=== PATIENT | male | born 1940 | race Two or more races ===

== ENCOUNTER 2018-12-13 17:53 | Inpatient (IN) | payer MEDICARE, OTHER ==
[~2018-12-13] VITALS: Ht 185.4 cm; Wt 81.6 kg
--- NOTE | 2018-12-13 18:00 | NUR ---
ED Nurse Note: Patient brought into ED by ambulance from [facility] c/o pnemonia, patient is diagnosed with PNA with CXR, Levaquin started yesterday, but c.o worsening symptoms. patient's PCP is requestin swallow evaluation upon admission. patient is alert awake, placed patient on monitor.
--- NOTE | 2018-12-13 18:06 | Emergency Room Report ---
History of Present Illness General Chief Complaint: Upper Respiratory Illness Present Illness HPI 78-year-old male possible history of hypertension, end-stage renal disease on dialysis Monday, he did not get his dialysis today, he presents with cough, dry in nature x4 days, he denies any aggravating or alleviating factors, he denies any chest pain, denies any shortness of breath, he does report subjective chills, no fevers, no abdominal pain, patient sent in from assisted for evaluation Allergies: Coded Allergies: PENICILLINS (Verified Allergy, Unknown, 12/13/18) Uncoded Allergies: PEANUT BUTTER (Allergy, Unknown, 12/13/18) Patient History Past Medical History: see triage record Reviewed Nursing Documentation: PMH: Agreed; PSxH: Agreed Review of Systems Constitutional: Denies: chills, fever Eye: Denies: blurred vision, double vision ENT: Denies: throat pain, nasal discharge Respiratory: Reports: cough, shortness of breath, sputum Cardiovascular: Denies: chest pain, palpitations Gastrointestinal: Denies: abdominal pain, diarrhea, nausea, vomiting Genitourinary: Denies: dysuria, pain Musculoskeletal: Denies: back pain, muscle pain Skin: Denies: rash, lesions Neurological: Denies: headache, focal weakness Hematologic/Lymphatic: Denies: easy bleeding, easy bruising All Other Systems: negative except mentioned in HPI Physical Exam Vital Signs Date Time Temp Pulse Resp B/P (MAP) Pulse Ox O2 Delivery O2 Flow Rate FiO2 12/13/18 17:51 98.1 75 16 134/70 (91) 96 Room Air Sp02 EP Interpretation: reviewed, normal General Appearance: well appearing, no apparent distress, alert Head: normocephalic, atraumatic Eyes: bilateral eye PERRL, bilateral eye EOMI ENT: uvula midline, moist mucus membranes Neck: supple, thyroid normal, supple/symm/no masses Respiratory: no respiratory distress, no retraction, no accessory muscle use, crackles - bilaterally Cardiovascular #1: normal peripheral pulses, regular rate, rhythm, no edema, no gallop, no murmur Gastrointestinal: non tender, soft, no guarding, no rebound Musculoskeletal: normal inspection Neurologic: alert, oriented x3 Psychiatric: mood/affect normal Skin: no rash, warm/dry Medical Decision Making Diagnostic Impression: Primary Impression: Pneumonia Additional Impression: Hyperkalemia ER Course 78-year-old male presents with cough concerning for pneumonia, versus ACS, versus fluid overload. Patient found to have possible left lower lobe infiltrate versus effusion, patient started on antibiotics, patient missed his dialysis today, he will receive his dialysis in the morning. Patient has no EKG changes, he is in no acute distress, Lasix was given for the hyperkalemia. Patient in no acute distress, oxygenation is normal. Patient will be admitted under Dr. Segura under telemetry Laboratory Tests Test 12/13/18 18:05 12/13/18 18:17 White Blood Count 8.1 K/UL (4.8-10.8) Red Blood Count 3.59 M/UL (4.70-6.10) L Hemoglobin 10.1 G/DL (14.2-18.0) L Hematocrit 31.9 % (42.0-52.0) L Mean Corpuscular Volume 89 FL (80-99) Mean Corpuscular Hemoglobin 28.1 PG (27.0-31.0) Mean Corpuscular Hemoglobin Concent 31.5 G/DL (32.0-36.0) L Red Cell Distribution Width 14.6 % (11.6-14.8) Platelet Count 165 K/UL (150-450) Mean Platelet Volume 6.5 FL (6.5-10.1) Neutrophils (%) (Auto) 56.1 % (45.0-75.0) Lymphocytes (%) (Auto) 25.8 % (20.0-45.0) Monocytes (%) (Auto) 9.0 % (1.0-10.0) Eosinophils (%) (Auto) 7.7 % (0.0-3.0) H Basophils (%) (Auto) 1.4 % (0.0-2.0) Prothrombin Time 10.3 SEC (9.30-11.50) Prothrombin Time INR 1.0 (0.9-1.1) PTT 30 SEC (23-33) Urine Color Pale yellow Urine Appearance Cloudy Urine pH 8 (4.5-8.0) Urine Specific [place] 1.015 (1.005-1.035) Urine Protein 3+ (NEGATIVE) H Urine Glucose (UA) Negative (NEGATIVE) Urine Ketones Negative (NEGATIVE) Urine Blood 4+ (NEGATIVE) H Urine Nitrite Negative (NEGATIVE) Urine Bilirubin Negative (NEGATIVE) Urine Urobilinogen Normal MG/DL (0.0-1.0) Urine Leukocyte Esterase 3+ (NEGATIVE) H Urine RBC 2-4 /HPF (0 - 0) H Urine WBC Tntc /HPF (0 - 0) H Urine Squamous Epithelial Cells Occasional /LPF Urine Bacteria Many /HPF (NONE) H Sodium Level 138 MMOL/L (136-145) Potassium Level 5.9 MMOL/L (3.5-5.1) H Chloride Level 101 MMOL/L (98-107) Carbon Dioxide Level 25 MMOL/L (21-32) Anion Gap 12 mmol/L (5-15) Blood Urea Nitrogen 87 mg/dL (7-18) H Creatinine 9.3 MG/DL (0.55-1.30) H Estimate Glomerular Filtration Rate mL/min (>60) Glucose Level 123 MG/DL (74-106) H Lactic Acid Level 1.20 mmol/L (0.4-2.0) Calcium Level 10.5 MG/DL (8.5-10.1) H Phosphorus Level 2.6 MG/DL (2.5-4.9) Magnesium Level 1.9 MG/DL (1.8-2.4) Total Bilirubin 0.7 MG/DL (0.2-1.0) Aspartate Amino Transferase (AST) 25 U/L (15-37) Alanine Aminotransferase (ALT) 17 U/L (12-78) Alkaline Phosphatase 103 U/L (46-116) Total Creatine Kinase 191 U/L (26-308) Creatine Kinase MB 1.4 NG/ML (0.0-3.6) Creatine Kinase MB Relative Index 0.7 Troponin I 0.000 ng/mL (0.000-0.056) Pro-B-Type Natriuretic Peptide 4117 pg/mL (0-125) H Total Protein 7.2 G/DL (6.4-8.2) Albumin 2.5 G/DL (3.4-5.0) L Globulin 4.7 g/dL Albumin/Globulin Ratio 0.5 (1.0-2.7) L Venous Blood pH 7.438 Venous Blood Partial Pressure CO2 31.8 Venous Blood Partial Pressure O2 73.2 Venous Blood HCO3 21.0 Venous Blood Total Carbon Dioxide 31.8 Venous Bld O2 Saturation (Measured) 73.2 Venous Blood Oxygen Saturation 90.9 Venous Blood Base Excess -2.5 Methemoglobin 0.1 Sodium (Blood Gas) EKG Diagnostic Results EKG Time: 19:05 EP Interpretation: NSR, rate 69, QTc 409, no acute ST elevations, normal axis Rate: normal Rhythm: NSR ST Segments: no acute changes Chest X-Ray Diagnostic Results Chest X-Ray Diagnostic Results : Chest X-Ray Ordered: Yes # of Views/Limited/Complete: 1 View Indication: Other - Cough EP Interpretation: Yes Interpretation: other - Blunting of left costophrenic angle, consolidation noted Impression: Other - Left lower lobe pneumonia Last Vital Signs Date Time Temp Pulse Resp B/P (MAP) Pulse Ox O2 Delivery O2 Flow Rate FiO2 12/13/18 17:51 98.1 75 16 134/70 (91) 96 Room Air Disposition: ADMITTED INPATIENT Condition: Stable Rubén Petersen M.D. Dec 13, 2018 18:06
[2018-12-13] MEDS ORDERED: Vancomycin 1.5 GM in NS 275 ML IVPB ONE (18:15)
[2018-12-13] MEDS ORDERED: Cefepime HCl 2 GM in NS 110 ML IV SCH (18:15)
[2018-12-13 18:26] VITALS: BP 151/89
[2018-12-13 18:48] LABS: APPEARANCE,URINE CLOUDY; BILIRUBIN, URINE NEGATIVE (NEGATIVE); COLOR,URINE PALE YELLOW; GLUCOSE, URINE (UA) NEGATIVE (NEGATIVE); KETONES,URINE NEGATIVE (NEGATIVE); LEUKOCYTE ESTERASE ,URINE 3+ (NEGATIVE); NITRITE,URINE NEGATIVE (NEGATIVE); PH,URINE 8 (4.5-8.0); PROTEIN,URINE 3+ (NEGATIVE); UROBILINOGEN,URINE NORMAL MG/DL (0.0-1.0)
[2018-12-13 18:50] LABS: BASOPHILS % (AUTO) 1.4 % (0.0-2.0); EOSINOPHILS % (AUTO) 7.7 % (0.0-3.0); HEMATOCRIT 31.9 % (42.0-52.0); HEMOGLOBIN 10.1 G/DL (14.2-18.0); LYMPHOCYTES % (AUTO) 25.8 % (20.0-45.0); MEAN CORPUSCULAR VOLUME 89 FL (80-99); NEUTROPHILS % (AUTO) 56.1 % (45.0-75.0); PLATELET COUNT 165 K/UL (150-450); RED BLOOD COUNT 3.59 M/UL (4.70-6.10); RED CELL DISTRIBUTION WIDTH 14.6 % (11.6-14.8); WHITE BLOOD COUNT 8.1 K/UL (4.8-10.8)
[2018-12-13 18:54] LABS: ANION GAP 12 mmol/L (5-15); BLOOD UREA NITROGEN 87 mg/dL (7-18); CALCIUM 10.5 MG/DL (8.5-10.1); CARBON DIOXIDE 25 MMOL/L (21-32); CHLORIDE 101 MMOL/L (98-107); CREATININE 9.3 MG/DL (0.55-1.30); POTASSIUM 5.9 MMOL/L (3.5-5.1); SODIUM 138 MMOL/L (136-145)
--- NOTE | 2018-12-13 19:00 | NUR ---
HAND-OFF: Report given to Jazmyn MURCIA. patient is stable in bed
[2018-12-13 19:08] LABS: ALANINE AMINOTRANSFERASE 17 U/L (12-78); ALBUMIN 2.5 G/DL (3.4-5.0); ALBUMIN/GLOBULIN RATIO 0.5 (1.0-2.7); ALKALINE PHOSPHATASE 103 U/L (46-116); ASPARTATE AMINO TRANSFERASE 25 U/L (15-37); BILIRUBIN,TOTAL 0.7 MG/DL (0.2-1.0); CKMB 1.4 NG/ML (0.0-3.6); CREATINE KINASE 191 U/L (26-308); PHOSPHORUS 2.6 MG/DL (2.5-4.9)
[2018-12-13 20:25] VITALS: BP 146/75
[2018-12-13] MEDS ORDERED: Milk of Magnesia 30ml Ud ORAL PRN (20:30)
[2018-12-13] MEDS ORDERED: HYDROcodone/Acetamin 5/325 tab ORAL PRN (20:30)
[2018-12-13] MEDS ORDERED: LORazepam 1mg tab ORAL PRN (20:30)
--- NOTE | 2018-12-13 20:55 | NUR ---
ED Nurse Note: Called [facility] for medications list. Varun put them in as soon as they are going to fax it.
[2018-12-13] MEDS: Heparin 5000 units/ml inj SUBQ SCH (21:00)
[2018-12-13 21:05] VITALS: BP 146/75
--- NOTE | 2018-12-13 21:05 | NUR ---
ED Nurse Note: Patient was admited to Tele due to pneumonia. Patient was transfered to the unit via gurney, by ACLS protocol, with all belongings. AAO x4, VSS at this time, skin is dry warm to touch.
--- NOTE | 2018-12-13 21:19 | NUR ---
NURSE NOTES: Received pt from ED via gurney. Pt transferred to tele without any incident. Received report from TWIN Pollard. Pt is A/Ox3. Copake pt to room, unit, and hospital policies. monitor car operator is in placed, IV site intact, asymptomatic, and patent. Bed is in the lowest position and locked. Call light within reach. Belongings list checked and accounted. Received admission orders from Dr. Olson. Will note and carry out.
[2018-12-13 21:30] VITALS: BP 149/82
[2018-12-13] MEDS ORDERED: Vancomycin 1 GM in D5W 275 ML IV SCH (21:30)
[2018-12-13] MEDS: Docusate 100mg cap ORAL SCH (22:01)
[2018-12-14] VITALS (7 sets, daily range): BP systolic 98–138; BP diastolic 60–80
[2018-12-14] MEDS ORDERED: PROSCAR5 MG ORAL (02:20)
[2018-12-14] MEDS ORDERED: VITAMIN D250000 UNI1 ORAL ×2 (02:20→19:34)
[2018-12-14] MEDS ORDERED: ASPIR 8181 MG ORAL (02:20)
[2018-12-14] MEDS ORDERED: megace PO (02:20)
[2018-12-14] MEDS ORDERED: NEPROVITE PO (02:23)
[2018-12-14] MEDS ORDERED: COLACE100 MG ORAL (02:23)
--- NOTE | 2018-12-14 02:35 | NUR ---
NURSE NOTES: Contacted [facility] regarding scheduled HD for today. Spoke to Penelope who said the paving stone installer HD nurse will return call.
[2018-12-14] MEDS ORDERED: RENVELA2.4 GM ORAL (02:37)
[2018-12-14] MEDS ORDERED: SENNA176 MG/5 M PO (02:37)
[2018-12-14] MEDS ORDERED: COREG6.25 MG ORAL (02:37)
[2018-12-14] MEDS ORDERED: LACTULOSE20 GM/301 (02:37)
[2018-12-14] MEDS ORDERED: HYDRALAZINE HCL25 M1 ORAL (02:37)
[2018-12-14] MEDS ORDERED: DULCOLAX10 MG RC (02:37)
[2018-12-14] MEDS ORDERED: FLOMAX0.4 MG ORAL (02:37)
[2018-12-14] MEDS ORDERED: [UNRECOGNIZED DRUG - OTHER] (02:37)
[2018-12-14] MEDS ORDERED: TIZANIDINE HCL4 MG ORAL (02:37)
[2018-12-14] MEDS ORDERED: TRAMADOL HCL50 MG ORAL (02:37)
[2018-12-14] MEDS ORDERED: IRON325 M1 PO (02:37)
[2018-12-14] MEDS ORDERED: GABAPENTIN100 MG ORAL (02:37)
[2018-12-14] MEDS ORDERED: OXYCODONE-ACET1 EAC5 ORAL (02:37)
[2018-12-14] MEDS ORDERED: MILK OF MA400 MG/51 ORAL (02:37)
[2018-12-14 06:34] LABS: BASOPHILS % (AUTO) 0.9 % (0.0-2.0); EOSINOPHILS % (AUTO) 6.4 % (0.0-3.0); HEMATOCRIT 38.8 % (42.0-52.0); LYMPHOCYTES % (AUTO) 18.1 % (20.0-45.0); MEAN CORPUSCULAR VOLUME 89 FL (80-99); MONOCYTES % (AUTO) 9.5 % (1.0-10.0); NEUTROPHILS % (AUTO) 65.2 % (45.0-75.0); PLATELET COUNT 205 K/UL (150-450); RED BLOOD COUNT 4.35 M/UL (4.70-6.10); RED CELL DISTRIBUTION WIDTH 15.1 % (11.6-14.8); WHITE BLOOD COUNT 10.3 K/UL (4.8-10.8)
[2018-12-14 06:57] LABS: ALANINE AMINOTRANSFERASE 13 U/L (12-78); ALBUMIN 2.6 G/DL (3.4-5.0); ALKALINE PHOSPHATASE 106 U/L (46-116); ANION GAP 13 mmol/L (5-15); ASPARTATE AMINO TRANSFERASE 22 U/L (15-37); BILIRUBIN,DIRECT 0.2 MG/DL (0.0-0.3); BILIRUBIN,TOTAL 0.8 MG/DL (0.2-1.0); BLOOD UREA NITROGEN 95 mg/dL (7-18); CALCIUM 10.6 MG/DL (8.5-10.1); CARBON DIOXIDE 22 MMOL/L (21-32); CHLORIDE 101 MMOL/L (98-107); CREATININE 10.1 MG/DL (0.55-1.30); SODIUM 137 MMOL/L (136-145)
[2018-12-14 07:03] LABS: POTASSIUM 6.6 MMOL/L (3.5-5.1)
--- NOTE | 2018-12-14 07:41 | NUR ---
NURSE NOTES: Report given to TWIN Nino.
--- NOTE | 2018-12-14 08:13 | NUR ---
CASE MANAGEMENT:REVIEW 78 YR OLD MALE [facility]IB[facility] CC: PNA BASED ON CHEST XRAY PRIOR TO ADMISSION...WAS ON LEVAQUIN PMH: ESRD ON HD SI: PNEUMONIA. HYPERKALEMIA 98.1 75 16 134/70 96% ON RA H/H-10.1/31.9 K+5.9 BUN+87 CR+9.3 IS: IV VANCOMYCIN IV CEFEPIME CHEST XRAY BLOOD CX : TO TELEMETRY UNIT
[2018-12-14] MEDS: Docusate 100mg cap ORAL SCH ×2 (09:29→20:31)
[2018-12-14] MEDS: Heparin 5000 units/ml inj SUBQ SCH ×2 (09:31→20:32)
--- NOTE | 2018-12-14 10:18 | Diagnostic Imaging Report ---
Indication: Cough Technique: One view of the chest Comparison: none Findings: There is atelectasis and possibly consolidation and pleural fluid at the left lung base. There is a left chest tunneled dialysis catheter in place. There is some atelectasis at the right lung base. The upper lungs are clear. Heart size is normal. Impression: Bilateral basilar atelectasis, possibly left-sided pleural fluid and consolidation This agrees with the preliminary interpretation provided by the emergency room physician
--- NOTE | 2018-12-14 15:25 | History and Physical ---
History of Present Illness General Date patient seen: Dec 14, 2018 Time patient seen: 15:00 Reason for Hospitalization: Upper Respiratory Illness Present Illness HPI 78 y/o M AA, resident of [facility] ESRD on HD, HTN, R LILIBETH, prior DVT who is referred to the ED for pneumonia. His vital signs were normal and his CXR was not particularly abnormal. Cefepime and Vancomycin was started. Nephrology was consulted and he was noted to have K 6.9, UF was done and his SBP was in the low 90's. He is feeling depressed today, reported to be tearful by RN and denies fever, chills, nausea, emesis or chest pain. He wants to return to SNF as soon as possible. Allergies: Coded Allergies: PENICILLINS (Verified Allergy, Unknown, 12/13/18) Uncoded Allergies: PEANUT BUTTER (Allergy, Unknown, 12/13/18) Medication History Scheduled Aspirin* (Aspir 81*), 81 MG ORAL DAILY, (Reported) Carvedilol (Coreg), 6.25 MG ORAL DAILY, (Reported) Docusate Sodium* (Colace*), 200 MG ORAL DAILY, (Reported) Ergocalciferol (Vitamin D2)* (Vitamin D*), 50,000 UNIT ORAL ONCE A WEEK, ( Reported) Ferrous Sulfate (Iron), 325 MG PO TID, (Reported) Finasteride* (Proscar*), 5 MG ORAL DAILY, (Reported) Gabapentin* (Gabapentin*), 100 MG ORAL THREE TIMES A DAY, (Reported) Magnesium Hydroxide* (Milk Of Magnesia*), 30 ML ORAL DAILY, (Reported) Senna [place]ield Extract (Senna), 17.2 MG PO QHS, (Reported) Sevelamer Carbonate* (Renvela*), 2,400 MG ORAL THREE TIMES A DAY, (Reported) Tamsulosin HCl (Flomax), 0.4 MG ORAL DAILY, (Reported) Tizanidine Hcl* (Zanaflex*), 2 MG ORAL Q8HR, (Reported) Scheduled PRN Bisacodyl (Dulcolax), 10 MG RC DAILY PRN for Constipation, (Reported) Hydralazine Hcl* (Hydralazine Hcl*), 25 MG ORAL EVERY 6 HOURS PRN for For High Blood Pressure, (Reported) Lactulose (Lactulose*), 30 ML ORAL QOD PRN for Constipation, (Reported) Oxycodone Hcl/Acetaminophen 10-325* (Oxycodone-Acetaminophen 10-325*), 1 TAB ORAL Q4H PRN for For Pain, (Reported) Tramadol Hcl* (Ultram*), 50 MG ORAL Q6H PRN for For Pain, (Reported) Miscellaneous Medications [Novolin Ss], (Reported) Patient History Healthcare decision maker Resuscitation status Full Code Advanced Directive on File Review of Systems All Other Systems: negative except mentioned in HPI Physical Exam General Appearance: WD/WN Lines, tubes and drains: peripheral HEENT: normocephalic, atraumatic Respiratory/Chest: lungs clear Abdomen: normal bowel sounds Neurologic: chief commercial officer II-XII grossly normal Last 24 Hour Vital Signs Date Time Temp Pulse Resp B/P (MAP) Pulse Ox O2 Delivery O2 Flow Rate FiO2 12/14/18 12:01 97.2 104 19 98/60 (73) 97 12/14/18 09:47 Room Air 12/14/18 08:00 98.0 115 19 114/64 (81) 97 12/14/18 04:00 98.4 98 19 138/80 (99) 97 12/14/18 04:00 100 12/14/18 00:00 98.1 84 18 117/67 (84) 96 12/14/18 00:00 84 12/13/18 22:36 Room Air 12/13/18 21:36 70 12/13/18 21:30 98.0 74 18 149/82 (104) 97 12/13/18 21:05 97.9 70 16 146/75 100 Room Air 12/13/18 21:05 97.9 70 16 140/80 100 Room Air 12/13/18 20:25 97.9 70 16 146/75 100 Room Air 12/13/18 18:26 75 16 Room Air 12/13/18 18:26 97.9 74 14 151/89 100 Room Air 12/13/18 17:51 98.1 75 16 134/70 (91) 96 Room Air Intake and Output 12/13/18 12/14/18 19:00 07:00 Intake Total 200 ml Output Total 3100 ml Balance -2900 ml Intake Oral 200 ml Output Urine Total 3100 ml Laboratory Tests Test 12/13/18 18:05 12/13/18 18:17 12/14/18 05:05 White Blood Count 8.1 K/UL (4.8-10.8) 10.3 K/UL (4.8-10.8) Red Blood Count 3.59 M/UL (4.70-6.10) L 4.35 M/UL (4.70-6.10) L Hemoglobin 10.1 G/DL (14.2-18.0) L 12.0 G/DL (14.2-18.0) L Hematocrit 31.9 % (42.0-52.0) L 38.8 % (42.0-52.0) L Mean Corpuscular Volume 89 FL (80-99) 89 FL (80-99) Mean Corpuscular Hemoglobin 28.1 PG (27.0-31.0) 27.6 PG (27.0-31.0) Mean Corpuscular Hemoglobin Concent 31.5 G/DL (32.0-36.0) L 30.9 G/DL (32.0-36.0) L Red Cell Distribution Width 14.6 % (11.6-14.8) 15.1 % (11.6-14.8) H Platelet Count 165 K/UL (150-450) 205 K/UL (150-450) Mean Platelet Volume 6.5 FL (6.5-10.1) 6.9 FL (6.5-10.1) Neutrophils (%) (Auto) 56.1 % (45.0-75.0) 65.2 % (45.0-75.0) Lymphocytes (%) (Auto) 25.8 % (20.0-45.0) 18.1 % (20.0-45.0) L Monocytes (%) (Auto) 9.0 % (1.0-10.0) 9.5 % (1.0-10.0) Eosinophils (%) (Auto) 7.7 % (0.0-3.0) H 6.4 % (0.0-3.0) H Basophils (%) (Auto) 1.4 % (0.0-2.0) 0.9 % (0.0-2.0) Prothrombin Time 10.3 SEC (9.30-11.50) Prothromb Time International Ratio 1.0 (0.9-1.1) Activated Partial Thromboplast Time 30 SEC (23-33) Urine Color Pale yellow Urine Appearance Cloudy Urine pH 8 (4.5-8.0) Urine Specific [place] 1.015 (1.005-1.035) Urine Protein 3+ (NEGATIVE) H Urine Glucose (UA) Negative (NEGATIVE) Urine Ketones Negative (NEGATIVE) Urine Blood 4+ (NEGATIVE) H Urine Nitrite Negative (NEGATIVE) Urine Bilirubin Negative (NEGATIVE) Urine Urobilinogen Normal MG/DL (0.0-1.0) Urine Leukocyte Esterase 3+ (NEGATIVE) H Urine RBC 2-4 /HPF (0 - 0) H Urine WBC Tntc /HPF (0 - 0) H Urine Squamous Epithelial Cells Occasional /LPF Urine Bacteria Many /HPF (NONE) H Sodium Level 138 MMOL/L (136-145) 137 MMOL/L (136-145) Potassium Level 5.9 MMOL/L (3.5-5.1) H 6.6 MMOL/L (3.5-5.1) *H Chloride Level 101 MMOL/L (98-107) 101 MMOL/L (98-107) Carbon Dioxide Level 25 MMOL/L (21-32) 22 MMOL/L (21-32) Anion Gap 12 mmol/L (5-15) 13 mmol/L (5-15) Blood Urea Nitrogen 87 mg/dL (7-18) H 95 mg/dL (7-18) H Creatinine 9.3 MG/DL (0.55-1.30) H 10.1 MG/DL (0.55-1.30) H Estimat Glomerular Filtration Rate mL/min (>60) mL/min (>60) Glucose Level 123 MG/DL (74-106) H 95 MG/DL (74-106) Lactic Acid Level 1.20 mmol/L (0.4-2.0) Calcium Level 10.5 MG/DL (8.5-10.1) H 10.6 MG/DL (8.5-10.1) H Phosphorus Level 2.6 MG/DL (2.5-4.9) Magnesium Level 1.9 MG/DL (1.8-2.4) Total Bilirubin 0.7 MG/DL (0.2-1.0) 0.8 MG/DL (0.2-1.0) Aspartate Amino Transf (AST/SGOT) 25 U/L (15-37) 22 U/L (15-37) Alanine Aminotransferase (ALT/SGPT) 17 U/L (12-78) 13 U/L (12-78) Alkaline Phosphatase 103 U/L (46-116) 106 U/L (46-116) Total Creatine Kinase 191 U/L (26-308) Creatine Kinase MB 1.4 NG/ML (0.0-3.6) Creatine Kinase MB Relative Index 0.7 Troponin I 0.000 ng/mL (0.000-0.056) Pro-B-Type Natriuretic Peptide 4117 pg/mL (0-125) H Total Protein 7.2 G/DL (6.4-8.2) 7.0 G/DL (6.4-8.2) Albumin 2.5 G/DL (3.4-5.0) L 2.6 G/DL (3.4-5.0) L Globulin 4.7 g/dL Albumin/Globulin Ratio 0.5 (1.0-2.7) L Venous Blood pH 7.438 Venous Blood Partial Pressure CO2 31.8 Venous Blood Partial Pressure O2 73.2 Venous Blood HCO3 21.0 Venous Blood Total Carbon Dioxide 31.8 Venous Bld O2 Saturation (Measured) 73.2 Venous Blood Oxygen Saturation 90.9 Venous Blood Base Excess -2.5 Methemoglobin 0.1 Sodium (Blood Gas) Direct Bilirubin 0.2 MG/DL (0.0-0.3) Microbiology Date/Time Source Procedure Growth Status 12/13/18 18:05 Urine,Clean Catch Urine Culture - Preliminary Gram Negative Bacillus 1 Resulted Height (Feet): 6 Height (Inches): 1.00 Weight (Pounds): 180 Medications Current Medications Medications (Trade) Dose Ordered Sig/Charles Route PRN Reason Start Time Stop Time Status Last Admin Dose Admin Acetaminophen (Tylenol) 650 mg Q4H PRN ORAL Mild Pain (Pain Scale 1-3) 12/13/18 20:30 01/12/19 20:29 Acetaminophen/ Hydrocodone Bitart ([place] 5/325) 1 tab Q6H PRN ORAL Moderate Pain (Pain Scale 4-6) 12/13/18 20:30 12/20/18 20:29 Bisacodyl (Dulcolax) 10 mg DAILYPRN PRN RECTAL Constipation 12/13/18 20:30 01/12/19 20:29 12/14/18 14:05 Cefepime HCl 500 mg/Dextrose 110 ml @ 220 mls/hr Q24H IV 12/14/18 18:00 12/21/18 17:59 Dextrose (Dextrose 50%) 25 ml Q30M PRN IV Hypoglycemia 12/13/18 20:30 01/12/19 20:29 Dextrose (Dextrose 50%) 50 ml Q30M PRN IV Hypoglycemia 12/13/18 20:30 01/12/19 20:29 Diphenhydramine HCl (Benadryl) 25 mg Q6H PRN ORAL Itching/Pruritis 12/13/18 20:30 01/12/19 20:29 Docusate Sodium (Colace) 100 mg EVERY 12 HOURS ORAL 12/13/18 21:00 01/12/19 20:59 12/14/18 09:29 Heparin Sodium (Porcine) (Heparin 5000 units/ml) 5,000 units EVERY 12 HOURS SUBQ 12/13/18 21:00 01/12/19 20:59 12/14/18 09:31 Lorazepam (Ativan) 1 mg Q4H PRN ORAL For Anxiety 12/13/18 20:30 12/20/18 20:29 12/14/18 14:05 Magnesium Hydroxide (Mom) 30 ml HSPRN PRN ORAL Constipation 12/13/18 20:30 01/12/19 20:29 Ondansetron HCl (Zofran) 4 mg Q6H PRN IVP Nausea & Vomiting 12/13/18 20:30 01/12/19 20:29 Pantoprazole (Protonix) 40 mg DAILY ORAL 12/14/18 09:00 01/13/19 08:59 12/14/18 09:29 Temazepam (Restoril) 15 mg HSPRN PRN ORAL Insomnia 12/13/18 20:30 12/20/18 20:29 Vancomycin HCl (Vanco rx to dose) 1 ea DAILY PRN MISC Per rx protocol 12/13/18 21:30 01/12/19 21:29 Assessment/Plan Status: doing well, stable Assessment/Plan: 78 y/o AA M admitted for pneumonia from SNF # Pneumonia Clinically appears much improved Cefepime and Vancomycin as the patient is SNF resident HHN as needed Supportive care ? fluid overload due to under dyalisis # ESRD HD per renal UF completed today Follow up BMP in am and decide if patient needs repeat HD or if outpatient HD is adequate # HTN Resume home medication # Underlying depression vs adjustment disorder Psychiatry follow up for support FULL CODE DVT- GI ppx Keith Cabello MD Dec 14, 2018 15:25
--- NOTE | 2018-12-14 16:19 | Consultation ---
History of Present Illness General Chief Complaint: Upper Respiratory Illness Present Illness HPI This is a 78 year old male with past medical history of ESRD on HD on // via [facility] chest permacath, HTN, R LILIBETH, prior DVT, SNF resident was sent to the ED for pneumonia. . Cefepime and Vancomycin was started. last HD on monday prior to admission His last HD session was 3 days ago. Hyperkalemic on presentation underwent HD today No UF- hypotensive during HD Allergies: Coded Allergies: PENICILLINS (Verified Allergy, Unknown, 12/13/18) Uncoded Allergies: PEANUT BUTTER (Allergy, Unknown, 12/13/18) Medication History Scheduled Aspirin* (Aspir 81*), 81 MG ORAL DAILY, (Reported) Carvedilol (Coreg), 6.25 MG ORAL DAILY, (Reported) Docusate Sodium* (Colace*), 200 MG ORAL DAILY, (Reported) Ergocalciferol (Vitamin D2)* (Vitamin D*), 50,000 UNIT ORAL ONCE A WEEK, ( Reported) Ferrous Sulfate (Iron), 325 MG PO TID, (Reported) Finasteride* (Proscar*), 5 MG ORAL DAILY, (Reported) Gabapentin* (Gabapentin*), 100 MG ORAL THREE TIMES A DAY, (Reported) Magnesium Hydroxide* (Milk Of Magnesia*), 30 ML ORAL DAILY, (Reported) Senna [place] Extract (Senna), 17.2 MG PO QHS, (Reported) Sevelamer Carbonate* (Renvela*), 2,400 MG ORAL THREE TIMES A DAY, (Reported) Tamsulosin HCl (Flomax), 0.4 MG ORAL DAILY, (Reported) Tizanidine Hcl* (Zanaflex*), 2 MG ORAL Q8HR, (Reported) Scheduled PRN Bisacodyl (Dulcolax), 10 MG RC DAILY PRN for Constipation, (Reported) Hydralazine Hcl* (Hydralazine Hcl*), 25 MG ORAL EVERY 6 HOURS PRN for For High Blood Pressure, (Reported) Lactulose (Lactulose*), 30 ML ORAL QOD PRN for Constipation, (Reported) Oxycodone Hcl/Acetaminophen 10-325* (Oxycodone-Acetaminophen 10-325*), 1 TAB ORAL Q4H PRN for For Pain, (Reported) Tramadol Hcl* (Ultram*), 50 MG ORAL Q6H PRN for For Pain, (Reported) Miscellaneous Medications [Novolin Ss], (Reported) Patient History Healthcare decision maker Resuscitation status Full Code Advanced Directive on File Review of Systems Constitutional: Denies: no symptoms, see HPI, chills, sweats, fever, malaise, weakness, other Eye: Denies: no symptoms, see HPI, eye pain, blurred vision, tearing, double vision, nose pain, nose congestion, acuity changes, discharge, other ENT: Denies: no symptoms, see HPI, ear pain, ear discharge, nose pain, nose congestion, throat pain, throat swelling, mouth pain, hearing loss, nasal discharge, other Respiratory: Denies: no symptoms, see HPI, cough, orthopnea, shortness of breath, stridor, wheezing, JAIN, sputum, other Cardiovascular: Denies: no symptoms, see HPI, chest pain, edema, palpitations, syncope, PND, other Gastrointestinal: Denies: no symptoms, see HPI, abdominal pain, constipation, diarrhea, nausea, vomiting, melena, hematemesis, other Genitourinary: Denies: no symptoms, see HPI, discharge, dysuria, frequency, hematuria, pain, retention, incontinence, urgency, vag bleed/dc, other Musculoskeletal: Denies: no symptoms, see HPI, back pain, gout, joint pain, joint swelling, muscle pain, muscle stiffness, other Skin: Denies: no symptoms, see HPI, rash, change in color, change in hair/nails , dryness, lesions, other Psychiatric: Denies: no symptoms, see HPI, prior hx, anxiety, depressed feelings, emotional problems, SI, HI, hallucinations, other Neurological: Denies: no symptoms, see HPI, headache, numbness, paresthesia, seizure, tingling, tremors, focal weakness, syncope, dizziness, other Endocrine: Denies: no symptoms, see HPI, excessive sweating, flushing, intolerance to temperature, increased thirst, increased urine, unexplained weight loss, other Physical Exam General Appearance: WD/WN, no apparent distress Lines, tubes and drains: peripheral HEENT: normocephalic, atraumatic Neck: non-tender, normal alignment, supple Respiratory/Chest: chest wall non-tender, lungs clear, normal breath sounds Cardiovascular/Chest: normal peripheral pulses Abdomen: normal bowel sounds Extremities: normal range of motion Neurologic: alert, oriented x 3 Last 24 Hour Vital Signs Date Time Temp Pulse Resp B/P (MAP) Pulse Ox O2 Delivery O2 Flow Rate FiO2 12/14/18 12:01 97.2 104 19 98/60 (73) 97 12/14/18 09:47 Room Air 12/14/18 08:00 98.0 115 19 114/64 (81) 97 12/14/18 04:00 98.4 98 19 138/80 (99) 97 12/14/18 04:00 100 12/14/18 00:00 98.1 84 18 117/67 (84) 96 12/14/18 00:00 84 12/13/18 22:36 Room Air 12/13/18 21:36 70 12/13/18 21:30 98.0 74 18 149/82 (104) 97 12/13/18 21:05 97.9 70 16 146/75 100 Room Air 12/13/18 21:05 97.9 70 16 140/80 100 Room Air 12/13/18 20:25 97.9 70 16 146/75 100 Room Air 12/13/18 18:26 75 16 Room Air 12/13/18 18:26 97.9 74 14 151/89 100 Room Air 12/13/18 17:51 98.1 75 16 134/70 (91) 96 Room Air Intake and Output 12/13/18 12/14/18 19:00 07:00 Intake Total 200 ml Output Total 3100 ml Balance -2900 ml Intake Oral 200 ml Output Urine Total 3100 ml Laboratory Tests Test 12/13/18 18:05 12/13/18 18:17 12/14/18 05:05 White Blood Count 8.1 K/UL (4.8-10.8) 10.3 K/UL (4.8-10.8) Red Blood Count 3.59 M/UL (4.70-6.10) L 4.35 M/UL (4.70-6.10) L Hemoglobin 10.1 G/DL (14.2-18.0) L 12.0 G/DL (14.2-18.0) L Hematocrit 31.9 % (42.0-52.0) L 38.8 % (42.0-52.0) L Mean Corpuscular Volume 89 FL (80-99) 89 FL (80-99) Mean Corpuscular Hemoglobin 28.1 PG (27.0-31.0) 27.6 PG (27.0-31.0) Mean Corpuscular Hemoglobin Concent 31.5 G/DL (32.0-36.0) L 30.9 G/DL (32.0-36.0) L Red Cell Distribution Width 14.6 % (11.6-14.8) 15.1 % (11.6-14.8) H Platelet Count 165 K/UL (150-450) 205 K/UL (150-450) Mean Platelet Volume 6.5 FL (6.5-10.1) 6.9 FL (6.5-10.1) Neutrophils (%) (Auto) 56.1 % (45.0-75.0) 65.2 % (45.0-75.0) Lymphocytes (%) (Auto) 25.8 % (20.0-45.0) 18.1 % (20.0-45.0) L Monocytes (%) (Auto) 9.0 % (1.0-10.0) 9.5 % (1.0-10.0) Eosinophils (%) (Auto) 7.7 % (0.0-3.0) H 6.4 % (0.0-3.0) H Basophils (%) (Auto) 1.4 % (0.0-2.0) 0.9 % (0.0-2.0) Prothrombin Time 10.3 SEC (9.30-11.50) Prothromb Time International Ratio 1.0 (0.9-1.1) Activated Partial Thromboplast Time 30 SEC (23-33) Urine Color Pale yellow Urine Appearance Cloudy Urine pH 8 (4.5-8.0) Urine Specific [place] 1.015 (1.005-1.035) Urine Protein 3+ (NEGATIVE) H Urine Glucose (UA) Negative (NEGATIVE) Urine Ketones Negative (NEGATIVE) Urine Blood 4+ (NEGATIVE) H Urine Nitrite Negative (NEGATIVE) Urine Bilirubin Negative (NEGATIVE) Urine Urobilinogen Normal MG/DL (0.0-1.0) Urine Leukocyte Esterase 3+ (NEGATIVE) H Urine RBC 2-4 /HPF (0 - 0) H Urine WBC Tntc /HPF (0 - 0) H Urine Squamous Epithelial Cells Occasional /LPF Urine Bacteria Many /HPF (NONE) H Sodium Level 138 MMOL/L (136-145) 137 MMOL/L (136-145) Potassium Level 5.9 MMOL/L (3.5-5.1) H 6.6 MMOL/L (3.5-5.1) *H Chloride Level 101 MMOL/L (98-107) 101 MMOL/L (98-107) Carbon Dioxide Level 25 MMOL/L (21-32) 22 MMOL/L (21-32) Anion Gap 12 mmol/L (5-15) 13 mmol/L (5-15) Blood Urea Nitrogen 87 mg/dL (7-18) H 95 mg/dL (7-18) H Creatinine 9.3 MG/DL (0.55-1.30) H 10.1 MG/DL (0.55-1.30) H Estimat Glomerular Filtration Rate mL/min (>60) mL/min (>60) Glucose Level 123 MG/DL (74-106) H 95 MG/DL (74-106) Lactic Acid Level 1.20 mmol/L (0.4-2.0) Calcium Level 10.5 MG/DL (8.5-10.1) H 10.6 MG/DL (8.5-10.1) H Phosphorus Level 2.6 MG/DL (2.5-4.9) Magnesium Level 1.9 MG/DL (1.8-2.4) Total Bilirubin 0.7 MG/DL (0.2-1.0) 0.8 MG/DL (0.2-1.0) Aspartate Amino Transf (AST/SGOT) 25 U/L (15-37) 22 U/L (15-37) Alanine Aminotransferase (ALT/SGPT) 17 U/L (12-78) 13 U/L (12-78) Alkaline Phosphatase 103 U/L (46-116) 106 U/L (46-116) Total Creatine Kinase 191 U/L (26-308) Creatine Kinase MB 1.4 NG/ML (0.0-3.6) Creatine Kinase MB Relative Index 0.7 Troponin I 0.000 ng/mL (0.000-0.056) Pro-B-Type Natriuretic Peptide 4117 pg/mL (0-125) H Total Protein 7.2 G/DL (6.4-8.2) 7.0 G/DL (6.4-8.2) Albumin 2.5 G/DL (3.4-5.0) L 2.6 G/DL (3.4-5.0) L Globulin 4.7 g/dL Albumin/Globulin Ratio 0.5 (1.0-2.7) L Venous Blood pH 7.438 Venous Blood Partial Pressure CO2 31.8 Venous Blood Partial Pressure O2 73.2 Venous Blood HCO3 21.0 Venous Blood Total Carbon Dioxide 31.8 Venous Bld O2 Saturation (Measured) 73.2 Venous Blood Oxygen Saturation 90.9 Venous Blood Base Excess -2.5 Methemoglobin 0.1 Sodium (Blood Gas) Direct Bilirubin 0.2 MG/DL (0.0-0.3) Microbiology Date/Time Source Procedure Growth Status 12/13/18 18:05 Urine,Clean Catch Urine Culture - Preliminary Gram Negative Bacillus 1 Resulted Height (Feet): 6 Height (Inches): 1.00 Weight (Pounds): 180 Medications Current Medications Medications (Trade) Dose Ordered Sig/Charles Route PRN Reason Start Time Stop Time Status Last Admin Dose Admin Acetaminophen (Tylenol) 650 mg Q4H PRN ORAL Mild Pain (Pain Scale 1-3) 12/13/18 20:30 01/12/19 20:29 Acetaminophen/ Hydrocodone Bitart ([place] 5/325) 1 tab Q6H PRN ORAL Moderate Pain (Pain Scale 4-6) 12/13/18 20:30 12/20/18 20:29 Bisacodyl (Dulcolax) 10 mg DAILYPRN PRN RECTAL Constipation 12/13/18 20:30 01/12/19 20:29 12/14/18 14:05 Cefepime HCl 500 mg/Dextrose 110 ml @ 220 mls/hr Q24H IV 12/14/18 18:00 12/21/18 17:59 Dextrose (Dextrose 50%) 25 ml Q30M PRN IV Hypoglycemia 12/13/18 20:30 01/12/19 20:29 Dextrose (Dextrose 50%) 50 ml Q30M PRN IV Hypoglycemia 12/13/18 20:30 01/12/19 20:29 Diphenhydramine HCl (Benadryl) 25 mg Q6H PRN ORAL Itching/Pruritis 12/13/18 20:30 01/12/19 20:29 Docusate Sodium (Colace) 100 mg EVERY 12 HOURS ORAL 12/13/18 21:00 01/12/19 20:59 12/14/18 09:29 Heparin Sodium (Porcine) (Heparin 5000 units/ml) 5,000 units EVERY 12 HOURS SUBQ 12/13/18 21:00 01/12/19 20:59 12/14/18 09:31 Lorazepam (Ativan) 1 mg Q4H PRN ORAL For Anxiety 12/13/18 20:30 12/20/18 20:29 12/14/18 14:05 Magnesium Hydroxide (Mom) 30 ml HSPRN PRN ORAL Constipation 12/13/18 20:30 01/12/19 20:29 Ondansetron HCl (Zofran) 4 mg Q6H PRN IVP Nausea & Vomiting 12/13/18 20:30 01/12/19 20:29 Pantoprazole (Protonix) 40 mg DAILY ORAL 12/14/18 09:00 01/13/19 08:59 12/14/18 09:29 Temazepam (Restoril) 15 mg HSPRN PRN ORAL Insomnia 12/13/18 20:30 12/20/18 20:29 Vancomycin HCl (Vanco rx to dose) 1 ea DAILY PRN MISC Per rx protocol 12/13/18 21:30 01/12/19 21:29 Assessment/Plan Problem List: (1) Hyperkalemia ICD Codes: E87.5 - Hyperkalemia SNOMED: 20793215 (2) Pneumonia ICD Codes: J18.9 - Pneumonia, unspecified organism SNOMED: 797076045 Diagnosis [place]: #ESRD on HD t//s last HD monday via [facility] chest permacath #hyperkalemia # HTN #R LILIBETH # prior DVT - HD today - monitor BMP - will HD again tomorrow - vanco and cefepime - 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 Dec 14, 2018 16:19
--- NOTE | 2018-12-14 16:48 | NUR ---
NURSE NOTES: CALLED [facility] [phone] AND SPOKE TO JOSE CRUZ D/T HD ORDERED FOR TOMORROW MORNING 12/15/2018 PLEASE FOLLOW UP
[2018-12-14] MEDS ORDERED: D5W IV SCH (18:00)
[2018-12-14] MEDS ORDERED: CEFEPIME HCL IV SCH (18:00)
[2018-12-14] MEDS ORDERED: MEGACE40 MG PO (18:47)
[2018-12-14] MEDS ORDERED: CARVEDILOL3.125 MG ORAL (18:47)
[2018-12-14] MEDS ORDERED: OMEPRAZOLE40 M1 ORAL (18:47)
[2018-12-14] MEDS ORDERED: RENVELA800 MG ORAL (18:47)
[2018-12-14] MEDS ORDERED: TIZANIDINE HCL2 M2 PO (18:47)
[2018-12-14] MEDS ORDERED: ERGOCALCIFEROL IM (19:10)
[2018-12-14] MEDS ORDERED: SENNA8.6 M2 PO (19:10)
[2018-12-14] MEDS ORDERED: NOVOLIN R100 UNIT/1 SUBQ (19:10)
[2018-12-14] MEDS ORDERED: PROCRIT20000 UNI2 SUBQ (19:10)
--- NOTE | 2018-12-14 19:25 | NUR ---
NURSE NOTES: Received report from Trung RN, pt. in bed awake, A/O x's 4- able to make needs known, pt. appears to be resting comfortably, monitoring and evaluation advisor on, no signs or symptoms of acute cardiac or respiratory distress noted, bed in lowest position and call light within easy reach, side rails up x's3 and safety brakes locked, pt. appears to be sating well on room air- no distress noted, pt. appears to be clean and dry, comfort measures provided, RT. hand 22G- IV intact and patent- saline lock, TUSHAR AV shunt not working per endorsement, Left upper chest PermCath for Hemodialysis- intact, safety measures continued, will continue with plan of care.
--- NOTE | 2018-12-14 19:56 | NUR ---
NURSE NOTES: PLEASE FOLLOW UP WITH HD FOR TOMORROW( I CALLED [facility] [phone]) THEY DID NOT CALL BACK TO CONFIRM YET. CRYSTAL BELTRÁN NOTED. I WAS UNABLE TO NOTIFY DR. REN ( RECENTLY DR. DUMAS OFFICE NUMBER NOT GOING THROUGH) I CALLED X 4 DR. DUMAS OFFICE @ [phone] STILL UNABLE TO REACH HIM. PLEASE FOLLOW UP
--- NOTE | 2018-12-14 20:06 | NUR ---
HAND-OFF: Report given to SHELLEY MURCIA.
[2018-12-15] VITALS: BP 135/74
--- NOTE | 2018-12-15 03:45 | Consultation ---
DATE OF CONSULTATION: 12/14/2018 HISTORY OF PRESENT ILLNESS: The patient is an 78-year-old male with a history of multiple medical problems, who resides in [place]. I am well familiar with the patient. The patient has a history of depression. The patient has been more tearful today, presents with depressed mood, anhedonia, worthlessness, and hopelessness. The patient denied any suicidal or homicidal ideation, presents with sadness and low energy. PAST PSYCHIATRIC HISTORY: Depression. PAST MEDICAL HISTORY: Multiple medical problems including pneumonia and hyperkalemia. ALLERGIES: Phenobarbital and penicillin. SUBSTANCE ABUSE HISTORY: No known history of illicit drug use or alcohol. MENTAL STATUS EXAMINATION: The patient is alert and oriented times self, place, and situation. Mood is depressed. Affect is constricted. Congruent with mood. Thought process is concrete. Thought content, no suicidal or homicidal ideation. Memory is impaired. ASSESSMENT: AXIS I: Major depressive disorder. AXIS II: Deferred. AXIS III: As above. AXIS IV: Low. AXIS V: 25. PLAN: 1. The patient will be started on Lexapro 10 mg in the morning. 2. The patient is not an imminent danger to self or others. 3. The patient was provided with reality orientation and supportive therapy. Les Mcmillan M.D. DR: Елена JOB#: [id number] CC:
[2018-12-15 04:00] VITALS: BP 143/74
--- NOTE | 2018-12-15 06:41 | NUR ---
NURSE NOTES: left message with Shaquille at [facility] to see what time pt. will be scheduled for dialysis today- he will have message sent to nurse and have them follow up.
--- NOTE | 2018-12-15 07:00 | NUR ---
NURSE NOTES: received patient report from sandra reid. patient is on bed asleep. not in acute distress. no arrythmias reported during the night. FC noted. skin is intact. for HD today. be di slow and locked for safety. will follow plan of care.
[2018-12-15 07:13] LABS: ANION GAP 13 mmol/L (5-15); BLOOD UREA NITROGEN 83 mg/dL (7-18); CALCIUM 10.1 MG/DL (8.5-10.1); CARBON DIOXIDE 23 MMOL/L (21-32); CHLORIDE 102 MMOL/L (98-107); CREATININE 9.9 MG/DL (0.55-1.30); PHOSPHORUS 4.3 MG/DL (2.5-4.9); SODIUM 137 MMOL/L (136-145)
[2018-12-15 07:18] LABS: POTASSIUM 6.1 MMOL/L (3.5-5.1)
--- NOTE | 2018-12-15 07:19 | NUR ---
HAND-OFF: Report given to Bobbi MURCIA, pt. remains stable and no signs of distress noted. Aware to f/u on Hemodialysis and with MARYLIN Andres regarding pts urine colored pinkish red.
[2018-12-15 08:00] VITALS: BP 126/65
[2018-12-15] MEDS: Docusate 100mg cap ORAL SCH ×2 (08:08→20:49)
[2018-12-15] MEDS: Heparin 5000 units/ml inj SUBQ SCH ×3 (08:14→20:49)
--- NOTE | 2018-12-15 10:55 | NUR ---
NURSE NOTES: patient is currently on HD started 30 minutes ago. patient is stable. will continue to monitor.
--- NOTE | 2018-12-15 11:00 | NUR ---
PT note Attempted to see patient for treatment but is currently receiving dialysis.
[2018-12-15 12:00] VITALS: BP 109/71
--- NOTE | 2018-12-15 13:00 | NUR ---
NURSE NOTES: patient was done with his scheduled HD today, remains stable. 2 Li out.will continue to monitor.
--- NOTE | 2018-12-15 13:48 | General Progress Note ---
Assessment/Plan Status: doing well, stable Assessment/Plan: 78 y/o AA M admitted for pneumonia from SNF # Pneumonia ? Clinically appears much improved. WIll adjust antibiotics per culture. HHN as needed Supportive care # ESRD HD per renal today Follow up BMP in am # UTI Continue with Cefriaxone per sensitivities. # HTN Resume home medication # Underlying depression vs adjustment disorder Psychiatry follow up for support FULL CODE DVT- GI ppx Subjective Allergies: Coded Allergies: PENICILLINS (Verified Allergy, Unknown, 12/13/18) Uncoded Allergies: PEANUT BUTTER (Allergy, Unknown, 12/13/18) All Systems: reviewed and negative except above Subjective Eager to return to [facility]. Objective Last 24 Hour Vital Signs Date Time Temp Pulse Resp B/P (MAP) Pulse Ox O2 Delivery O2 Flow Rate FiO2 12/15/18 12:00 79 12/15/18 12:00 98.5 89 18 109/71 (84) 96 12/15/18 09:00 Room Air 12/15/18 08:00 97.1 76 18 126/65 (85) 97 12/15/18 07:49 71 12/15/18 04:00 72 12/15/18 04:00 98.3 75 18 143/74 (97) 98 12/15/18 00:00 77 12/15/18 00:00 97.6 75 16 135/74 (94) 98 12/14/18 21:00 Room Air 12/14/18 20:00 97.8 79 20 124/61 (82) 98 12/14/18 20:00 89 12/14/18 16:00 100 12/14/18 16:00 97.5 98 19 115/70 (85) 97 Intake and Output 12/14/18 12/15/18 19:00 07:00 Intake Total 250 ml Output Total 800 ml 500 ml Balance -550 ml -500 ml Intake Oral 250 ml Output Urine Total 800 ml 500 ml Laboratory Tests 12/15/18 05:25: Sodium Level 137, Potassium Level 6.1*H, Chloride Level 102, Carbon Dioxide Level 23, Anion Gap 13, Blood Urea Nitrogen 83H, Creatinine 9.9H, Estimat Glomerular Filtration Rate , Glucose Level 90, Calcium Level 10.1, Phosphorus Level 4.3, Magnesium Level 1.8, Random Vancomycin Level 16.3 Height (Feet): 6 Height (Inches): 1.00 Weight (Pounds): 180 General Appearance: WD/WN EENT: PERRL/EOMI Neck: non-tender Cardiovascular: normal peripheral pulses Respiratory/Chest: chest wall non-tender Edema: trace edema Neurologic: executive team leader II-XII grossly normal Keith Cabello MD Dec 15, 2018 13:48
[2018-12-15] MEDS: cefTRIAXone 1gm/D5W 55ml IVPB SCH ×2 (14:54)
[2018-12-15 16:00] VITALS: BP 116/77
[2018-12-15] MEDS ORDERED: Vancomycin 1gm/D5W 275ml IVPB ONE ×2 (18:30)
--- NOTE | 2018-12-15 19:19 | NUR ---
HAND-OFF: Report given to hilary rn.
--- NOTE | 2018-12-15 19:20 | NUR ---
NURSE NOTES: Received report from Ileana Cortes RN. Patient in bed with no complaints of acute pain or discomfort noted. Kept clean, dry, and comfortable in bed. IV line and DARYL permacath intact and patent SL, and placed on continuous cardiac monitoring per protocol. FC patent, intact and with pinkish-tinged urine, MD aware. Currently on RA with no S/S of SOB or resp. distress and 02 sat at 94-95%. Safety precaution in place; siderails X3 up, call light within reach, bed in lowest position, brakes and alarm on at all times. Needs and wants anticipated and attended. Will continue plan of care and monitor for any changes noted. HD done today. 2L out
[2018-12-15 20:00] VITALS: BP 124/68
--- NOTE | 2018-12-15 23:14 | Nephrology Progress Note ---
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 - monitor phos and calcium - follow cx - Ok to DC frrom renal perspective tomorrow Subjective Interval Events/Complaints s/p HD again today feeling ok Breathing stable Bp stable Objective Objective Last 24 Hour Vital Signs Date Time Temp Pulse Resp B/P (MAP) Pulse Ox O2 Delivery O2 Flow Rate FiO2 12/15/18 21:00 Room Air 12/15/18 20:00 98.5 86 18 124/68 (86) 95 12/15/18 16:00 100 12/15/18 16:00 98.8 85 18 116/77 (90) 97 12/15/18 12:00 79 12/15/18 12:00 98.5 89 18 109/71 (84) 96 12/15/18 09:00 Room Air 12/15/18 08:00 97.1 76 18 126/65 (85) 97 12/15/18 07:49 71 12/15/18 04:00 72 12/15/18 04:00 98.3 75 18 143/74 (97) 98 12/15/18 00:00 77 12/15/18 00:00 97.6 75 16 135/74 (94) 98 Intake and Output 12/14/18 12/15/18 19:00 07:00 Intake Total 250 ml Output Total 800 ml 500 ml Balance -550 ml -500 ml Intake Oral 250 ml Output Urine Total 800 ml 500 ml Laboratory Tests 12/15/18 05:25: Sodium Level 137, Potassium Level 6.1*H, Chloride Level 102, Carbon Dioxide Level 23, Anion Gap 13, Blood Urea Nitrogen 83H, Creatinine 9.9H, Estimat Glomerular Filtration Rate , Glucose Level 90, Calcium Level 10.1, Phosphorus Level 4.3, Magnesium Level 1.8, Random Vancomycin Level 16.3 Height (Feet): 6 Height (Inches): 1.00 Weight (Pounds): 180 General Appearance: no apparent distress EENT: PERRL/EOMI, normal ENT inspection Neck: normal alignment, supple Cardiovascular: normal peripheral pulses, normal rate Respiratory/Chest: chest wall non-tender, lungs clear, normal breath sounds Abdomen: non tender, soft Neurologic: alert, oriented x 3, responsive Rosi Andres M.D. Dec 15, 2018 23:14
[2018-12-16] VITALS: BP 115/65
[2018-12-16 04:00] VITALS: BP 125/66
[2018-12-16 07:27] LABS: BASOPHILS % (AUTO) 1.6 % (0.0-2.0); EOSINOPHILS % (AUTO) 9.1 % (0.0-3.0); HEMATOCRIT 35.1 % (42.0-52.0); LYMPHOCYTES % (AUTO) 27.9 % (20.0-45.0); MEAN CORPUSCULAR VOLUME 89 FL (80-99); MONOCYTES % (AUTO) 9.4 % (1.0-10.0); PLATELET COUNT 127 K/UL (150-450); RED BLOOD COUNT 3.92 M/UL (4.70-6.10); RED CELL DISTRIBUTION WIDTH 14.9 % (11.6-14.8); WHITE BLOOD COUNT 8.2 K/UL (4.8-10.8)
[2018-12-16 07:33] LABS: ANION GAP 12 mmol/L (5-15); BLOOD UREA NITROGEN 77 mg/dL (7-18); CARBON DIOXIDE 25 MMOL/L (21-32); CHLORIDE 100 MMOL/L (98-107); CREATININE 8.6 MG/DL (0.55-1.30); POTASSIUM 5.5 MMOL/L (3.5-5.1); SODIUM 137 MMOL/L (136-145)
--- NOTE | 2018-12-16 07:40 | NUR ---
NURSE NOTES: Nurse report given by TWIN Huntley. Patient is eating breakfast in bed. Patient is in stable condition, no sign of distress or SOB. Patient denies pain. He's AO x 4. IV site is patent and asymptomatic. Bed at lowest position, break engaged and call light within reach. Will continue to monitor.
--- NOTE | 2018-12-16 07:46 | NUR ---
HAND-OFF: Report given to Jake Cheema RN. Patient in bed in stable condition. Endorsed plan of care.
[2018-12-16 08:00] VITALS: BP 108/66
[2018-12-16] MEDS: Heparin 5000 units/ml inj SUBQ SCH ×3 (09:00→20:06)
--- NOTE | 2018-12-16 09:00 | NUR ---
NURSE NOTES: Patient's having uremia and blood clot noted in the cloud catheter bag. I held Heparin for 0900 medication administration. His platelet was at 205 yesterday and 127 this morning[address] I notified Dr. Cabello and Dr. Olson. Awaiting for response.
[2018-12-16] MEDS: Docusate 100mg cap ORAL SCH ×2 (09:19→20:28)
--- NOTE | 2018-12-16 11:30 | NUR ---
NURSE NOTES: Regarding patient's uremia in the cloud. I flushed with 50CC and Dr Cabello replied that he will come to see that patient within 1 hour. Will continue to monitor closely. Addendum: 12/16/18 at 1739 by Judi Cheema RN Correction: patient has hematuria, NOT uremia.
[2018-12-16 12:00] VITALS: BP 112/77
--- NOTE | 2018-12-16 13:36 | NUR ---
PT Note PT vickey completed, treatment initiated. Patient is cooperative; has LE muscle weakness, > on the RLE. RLE is held in external rotation. Patient was able to take 4 steps with the FWW. Patient can benefit from PT services to increase his muscle strength and balance to improve his functional mobility and gait. Addendum: 12/16/18 at 1336 by PRINCE SUN PT Amended: Links added.
--- NOTE | 2018-12-16 14:20 | NUR ---
NURSE NOTES: Per Dr. Cabello's order to d/c cloud catheter out due to uremia. Order's acknowledge and carried out with the present of Dr. Cabello in the room. Patient had 250cc of urine in the bag, bright red color, scant of blood clots in the bag; Dr. Cabello noted. 16Fr catheter is noted, tip is intact. Patient teaching is carried out that patient needs to void after cloud catheter is d/c. Addendum: 12/16/18 at 1740 by Jdui Cheema RN Correction: Patient has hematuria, NOT uremia, in the cloud bag.
--- NOTE | 2018-12-16 14:21 | Nephrology Progress Note ---
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 - monitor phos and calcium - follow cx - Ok to DC frrom renal perspective tomorrow after HD Subjective Interval Events/Complaints s/p HD [place] K 5.5 today breathing stable Objective Objective Last 24 Hour Vital Signs Date Time Temp Pulse Resp B/P (MAP) Pulse Ox O2 Delivery O2 Flow Rate FiO2 12/16/18 12:00 71 12/16/18 12:00 98.4 70 20 112/77 (89) 98 12/16/18 09:00 Room Air 12/16/18 08:00 87 12/16/18 08:00 98.9 79 20 108/66 (80) 96 12/16/18 04:00 75 12/16/18 04:00 98.6 77 18 125/66 (85) 97 12/16/18 00:00 79 12/16/18 00:00 97.0 99 18 115/65 (82) 97 12/15/18 21:00 Room Air 12/15/18 20:00 98.5 86 18 124/68 (86) 95 12/15/18 20:00 82 12/15/18 16:00 100 12/15/18 16:00 98.8 85 18 116/77 (90) 97 Intake and Output 12/15/18 12/16/18 19:00 07:00 Intake Total 590 ml 250 ml Output Total 2450 ml 400 ml Balance -1860 ml -150 ml Intake Oral 590 ml 250 ml Output Urine Total 450 ml 400 ml Hemodialysis UF 2000 ml # Bowel Movements 1 1 Laboratory Tests 12/16/18 05:25: White Blood Count 8.2, Red Blood Count 3.92L, Hemoglobin 11.0L, Hematocrit 35.1L , Mean Corpuscular Volume 89, Mean Corpuscular Hemoglobin 28.0, Mean Corpuscular Hemoglobin Concent 31.4L, Red Cell Distribution Width 14.9H, Platelet Count 127L, Mean Platelet Volume 6.9, Neutrophils (%) (Auto) 52.0, Lymphocytes (%) (Auto) 27.9, Monocytes (%) (Auto) 9.4, Eosinophils (%) (Auto) 9.1H, Basophils (%) (Auto) 1.6, Sodium Level 137, Potassium Level 5.5H, Chloride Level 100, Carbon Dioxide Level 25, Anion Gap 12, Blood Urea Nitrogen 77H, Creatinine 8.6H, Estimat Glomerular Filtration Rate , Glucose Level 81, Calcium Level 10.0 Height (Feet): 6 Height (Inches): 1.00 Weight (Pounds): 180 Rosi Andres M.D. Dec 16, 2018 14:21
[2018-12-16] MEDS ORDERED: CEPHALEXIN500 MG ORAL (14:29)
[2018-12-16] MEDS ORDERED: Sodium Polystyrene Sulfonate 15gm Powder ORAL SCH (14:30)
--- NOTE | 2018-12-16 14:30 | Discharge Instructions ---
Discharge Instructions Discharge Instructions Services at Discharge: physical therapy Diet: 2 GM sodium (low sodium), renal (80g protein, 2GM) Resume Normal Activity?: Yes Activity: resume normal activities For Surgical Patients May shower: Yes Contact your physician for: bleeding For Congestive Heart Failure Reminder Report to your physician any weight gain of 5 pounds or more in one week. Keith Cabello MD Dec 16, 2018 14:30
--- NOTE | 2018-12-16 14:35 | Discharge Summary ---
Discharge Summary Hospital Course Date of Admission Dec 13, 2018 at 19:50 Date of Discharge Admitting Diagnosis PNEUMONIA HPI Bert Ray is a 78 year old male who was admitted on Dec 13, 2018 at 19:50 for Pneumonia and hyperkalemia Consultations nephrology Procedures dialysis x 2 Hospital Course 78 y/o AA M admitted for pneumonia from SNF # Pneumonia ? Clinically appears much improved. Per review of his CXR it was clear without any infiltrate on my exam. HHN as needed Supportive care # ESRD HD per renal today Follow up BMP in am # UTI Continue with Cefriaxone per sensitivities. He did grow Klebsiella pneumonia and will complete a 7 day course with cephalexin # HTN Resume home medication # Underlying depression vs adjustment disorder Psychiatry follow up for support # Disposition Patient is back to his baseline and will return to SNF today. FULL CODE DVT- GI ppx Discharge Condition Upon Discharge: stable Discharge Disposition Patient was discharged to [facility] SNF Discharge Diagnoses: (1) UTI (urinary tract infection) (2) Hyperkalemia Discharge Instructions Discharge Instructions Services Upon Discharge: physical therapy Activity: resume normal activities For Surgical Patients May shower: Yes Contact your physician for: Keith Weiss MD Dec 16, 2018 14:35
--- NOTE | 2018-12-16 15:19 | NUR ---
NURSE NOTES: called [facility] and spoke to Alisa, informed her that the discharge order placed today, according to her she will ask their admission coordinator and will call us back.
--- NOTE | 2018-12-16 15:30 | NUR ---
NURSE NOTES: clarified with Dr Cabello regarding discharge order and he said to dc pt to SNF tomorrow after HD, [place] admission coordinator from [facility], made aware.
--- NOTE | 2018-12-16 15:49 | General Progress Note ---
Assessment/Plan Status: doing well, stable Assessment/Plan: 78 y/o AA M admitted for pneumonia from SNF # Pneumonia ?? Clinically appears much improved. Per review of his CXR it was clear without any infiltrate on my exam. HHN as needed Supportive care # ESRD HD per renal today and per discussion with Dr. Andres recommends one more HD in AM prior to dc back to SNF Follow up BMP in am # UTI Continue with Cefriaxone per sensitivities. He did grow Klebsiella pneumonia and will complete a 7 day course with cephalexin ( Rx completed in dc orders) # Remove Fowler Patient did not have prior history of urinary retention and is not justifiable to discharge to SNF with fowler. Trial of voiding. # HTN Resume home medication # Underlying depression vs adjustment disorder Psychiatry follow up for support # Disposition Patient is back to his baseline and will return to SNF tomorrow AFTER HD. RN and can marker updated. SNF called. FULL CODE DVT- GI ppx Subjective Allergies: Coded Allergies: PENICILLINS (Verified Allergy, Unknown, 12/13/18) Uncoded Allergies: PEANUT BUTTER (Allergy, Unknown, 12/13/18) [facility] Denies pain and was noted to have pink tinge urine in the FOWLER ( new placement in the ER this admission ) Objective Last 24 Hour Vital Signs Date Time Temp Pulse Resp B/P (MAP) Pulse Ox O2 Delivery O2 Flow Rate FiO2 12/16/18 12:00 71 12/16/18 12:00 98.4 70 20 112/77 (89) 98 12/16/18 09:00 Room Air 12/16/18 08:00 87 12/16/18 08:00 98.9 79 20 108/66 (80) 96 12/16/18 04:00 75 12/16/18 04:00 98.6 77 18 125/66 (85) 97 12/16/18 00:00 79 12/16/18 00:00 97.0 99 18 115/65 (82) 97 12/15/18 21:00 Room Air 12/15/18 20:00 98.5 86 18 124/68 (86) 95 12/15/18 20:00 82 12/15/18 16:00 100 12/15/18 16:00 98.8 85 18 116/77 (90) 97 Intake and Output 12/15/18 12/16/18 19:00 07:00 Intake Total 590 ml 250 ml Output Total 2450 ml 400 ml Balance -1860 ml -150 ml Intake Oral 590 ml 250 ml Output Urine Total 450 ml 400 ml Hemodialysis UF 2000 ml # Bowel Movements 1 1 Laboratory Tests 12/16/18 05:25: White Blood Count 8.2, Red Blood Count 3.92L, Hemoglobin 11.0L, Hematocrit 35.1L , Mean Corpuscular Volume 89, Mean Corpuscular Hemoglobin 28.0, Mean Corpuscular Hemoglobin Concent 31.4L, Red Cell Distribution Width 14.9H, Platelet Count 127L, Mean Platelet Volume 6.9, Neutrophils (%) (Auto) 52.0, Lymphocytes (%) (Auto) 27.9, Monocytes (%) (Auto) 9.4, Eosinophils (%) (Auto) 9.1H, Basophils (%) (Auto) 1.6, Sodium Level 137, Potassium Level 5.5H, Chloride Level 100, Carbon Dioxide Level 25, Anion Gap 12, Blood Urea Nitrogen 77H, Creatinine 8.6H, Estimat Glomerular Filtration Rate , Glucose Level 81, Calcium Level 10.0 Height (Feet): 6 Height (Inches): 1.00 Weight (Pounds): 180 General Appearance: WD/WN EENT: PERRL/EOMI Neck: non-tender Cardiovascular: normal rate, regular rhythm Respiratory/Chest: lungs clear, normal breath sounds Abdomen: non tender Neurologic: chief clerk II-XII grossly normal Skin: normal pigmentation Keith Cabello MD Dec 16, 2018 15:49
[2018-12-16 16:00] VITALS: BP 112/73
[2018-12-16] MEDS: cefTRIAXone 1gm/D5W 55ml IVPB SCH ×2 (16:19)
--- NOTE | 2018-12-16 19:00 | NUR ---
HAND-OFF: Report given to TWIN Huntley. Patient is sitting in bed. Patient is upset and crying and stated: "why can't I pee? What's wrong with me?" We reassure him that we will scan his bladder to see if there is any fluid retention and explained to him there are different factors for why he hasn't able to urinate yet. Other than that, patient is in stable condition, no s/s of acute distress or SOB.
--- NOTE | 2018-12-16 19:05 | NUR ---
NURSE NOTES: Received report from Jake Cheema RN. Patient in bed with no complaints of acute pain or discomfort noted. Kept clean, dry, and comfortable in bed. IV line and DARYL Permacath intact and patent SL, and placed on continuous cardiac monitoring per protocol. FC patent, intact and with pinkish-tinged urine, MD aware. Currently on RA with no S/S of SOB or resp. distress and 02 sat at 94-95%. Safety precaution in place; siderails X3 up, call light within reach, bed in lowest position, brakes and alarm on at all times. Needs and wants anticipated and attended. Will continue plan of care and monitor for any changes noted. Scheduled to be DC tomorrow after HD with [facility]
[2018-12-16 20:00] VITALS: BP 122/71
--- NOTE | 2018-12-16 21:15 | NUR ---
NURSE NOTES: Used Bladder scanner to monitor for any residual post FC removal. 150ml noted with no complaints of fullness or discomfort. Will continue to monitor
--- NOTE | 2018-12-16 22:18 | NUR ---
NURSE NOTES: Called [facility] and spoke with Georgie to confirm scheduled HD tomorrow 12/17/18. Awaiting return call from On-call RN. Will continue to monitor.
--- NOTE | 2018-12-16 23:00 | Progress Note ---
DATE: 12/17/2018 SUBJECTIVE: The patient is doing better. Continues to present with depressed mood, anhedonia, worthlessness, hopelessness, decreased energy, and at times tearful. MENTAL STATUS EXAM: The patient is alert and oriented times self, place, and situation. Mood is depressed. Affect is constricted. Congruent with mood. Thought process is linear. Thought content, no suicidal or homicidal ideation. ASSESSMENT: Major depressive disorder and anxiety disorder. PLAN: 1. We will continue Lexapro. 2. Continue the Ativan. 3. Provide the patient with reality orientation and supportive therapy. Les Mcmillan M.D. DR: AMINTA JOB#: [id number] CC:
[2018-12-17] VITALS: BP 126/70
[2018-12-17 04:00] VITALS: BP 128/74
--- NOTE | 2018-12-17 04:59 | NUR ---
NURSE NOTES: Patient in bed asleep with no S/S of distress. Will continue plan of care.
[2018-12-17 06:12] LABS: BASOPHILS % (AUTO) 1.5 % (0.0-2.0); EOSINOPHILS % (AUTO) 10.6 % (0.0-3.0); HEMOGLOBIN 10.6 G/DL (14.2-18.0); LYMPHOCYTES % (AUTO) 31.4 % (20.0-45.0); MEAN CORPUSCULAR VOLUME 89 FL (80-99); MONOCYTES % (AUTO) 9.6 % (1.0-10.0); NEUTROPHILS % (AUTO) 46.9 % (45.0-75.0); PLATELET COUNT 125 K/UL (150-450); RED BLOOD COUNT 3.81 M/UL (4.70-6.10); RED CELL DISTRIBUTION WIDTH 14.6 % (11.6-14.8); WHITE BLOOD COUNT 7.4 K/UL (4.8-10.8)
[2018-12-17 06:16] LABS: ANION GAP 13 mmol/L (5-15); BLOOD UREA NITROGEN 99 mg/dL (7-18); CALCIUM 9.9 MG/DL (8.5-10.1); CARBON DIOXIDE 24 MMOL/L (21-32); CHLORIDE 99 MMOL/L (98-107); CREATININE 10.5 MG/DL (0.55-1.30); POTASSIUM 5.7 MMOL/L (3.5-5.1); SODIUM 136 MMOL/L (136-145)
--- NOTE | 2018-12-17 07:15 | NUR ---
NURSE NOTES: Nurse report given by TWIN Huntley. Patient is sleeping comfortably in bed, no s/s of distress or SOB. Breakfast at bedside. Bed at lowest position, break engaged and call light within reach. IV site is saline lock. Urinal at bedside. Will continue to monitor.
--- NOTE | 2018-12-17 07:16 | NUR ---
HAND-OFF: Report given to Jake Cheema RN. Patient in bed in stable condition. Endorsed plan of care.
--- NOTE | 2018-12-17 07:17 | NUR ---
DISCHARGE PLANNING DISCHARGE ORDER NOTED FAXED CLINICALS TO [facility] T; [phone] F: [phone] DC AFTER DIALYSIS TODAY WAITING FOR ASSIGNED ROOM NUMBER AT [facility]
[2018-12-17 08:00] VITALS: BP 128/60
[2018-12-17] MEDS: Heparin 5000 units/ml inj SUBQ SCH (09:00)
[2018-12-17] MEDS: Docusate 100mg cap ORAL SCH (09:03)
--- NOTE | 2018-12-17 09:29 | General Progress Note ---
Assessment/Plan Status: doing well, stable Assessment/Plan: 78 y/o AA M admitted for pneumonia from SNF # Pneumonia ?? Clinically appears much improved. Per review of his CXR it was clear without any infiltrate on my exam. HHN as needed Supportive care # ESRD HD per renal today and per discussion with Dr. Andres recommends one more HD in AM prior to dc back to SNF dc home to snf 12/17 after HD # UTI Continue with Cefriaxone per sensitivities. He did grow Klebsiella pneumonia and will complete a 7 day course with cephalexin ( Rx completed in dc orders) # Remove Cloud Patient did not have prior history of urinary retention and is not justifiable to discharge to SNF with cloud. Trial of voiding. 120 cc on bladder scan after completed course of abx for uti can consider starting flomax # HTN Resume home medication # Underlying depression vs adjustment disorder Psychiatry follow up for support # Disposition Patient is back to his baseline and will return to SNF today AFTER HD. RN and die presser updated. SNF called. FULL CODE DVT- GI ppx Subjective Date patient seen: Dec 17, 2018 Time patient seen: 09:00 ROS Limited/Unobtainable: No Allergies: Coded Allergies: PENICILLINS (Verified Allergy, Unknown, 12/13/18) Uncoded Allergies: PEANUT BUTTER (Allergy, Unknown, 12/13/18) All Systems: reviewed and negative except above - admits to not urinating since catheter removal yesterday; per rn last bladder scan was 120 cc; denies sob, cp, dizziness Objective Last 24 Hour Vital Signs Date Time Temp Pulse Resp B/P (MAP) Pulse Ox O2 Delivery O2 Flow Rate FiO2 12/17/18 08:00 97.9 72 18 128/60 (82) 96 12/17/18 04:00 66 12/17/18 04:00 98.9 74 17 128/74 (92) 94 12/17/18 00:00 72 12/17/18 00:00 98.7 69 18 126/70 (88) 94 12/16/18 20:45 Room Air 12/16/18 20:00 99.0 76 17 122/71 (88) 95 12/16/18 20:00 75 12/16/18 17:37 Room Air 12/16/18 16:00 98.4 84 20 112/73 (86) 98 12/16/18 16:00 72 12/16/18 12:00 71 12/16/18 12:00 98.4 70 20 112/77 (89) 98 Intake and Output 12/16/18 12/17/18 19:00 07:00 Intake Total 600 ml 240 ml Output Total 250 ml Balance 350 ml 240 ml Intake Oral 600 ml 240 ml Output Urine Total 250 ml # Voids 1 # Bowel Movements 2 1 Laboratory Tests 12/17/18 05:05: White Blood Count 7.4, Red Blood Count 3.81L, Hemoglobin 10.6L, Hematocrit 34.0L , Mean Corpuscular Volume 89, Mean Corpuscular Hemoglobin 27.8, Mean Corpuscular Hemoglobin Concent 31.2L, Red Cell Distribution Width 14.6, Platelet Count 125L, Mean Platelet Volume 7.2, Neutrophils (%) (Auto) 46.9, Lymphocytes (%) (Auto) 31.4, Monocytes (%) (Auto) 9.6, Eosinophils (%) (Auto) 10.6H, Basophils (%) (Auto) 1.5, Sodium Level 136, Potassium Level 5.7H, Chloride Level 99, Carbon Dioxide Level 24, Anion Gap 13, Blood Urea Nitrogen 99H, Creatinine 10.5H, Estimat Glomerular Filtration Rate , Glucose Level 91, Calcium Level 9.9 Height (Feet): 6 Height (Inches): 1.00 Weight (Pounds): 180 General Appearance: WD/WN, no apparent distress, alert EENT: PERRL/EOMI, normal ENT inspection Neck: non-tender, normal alignment, supple Cardiovascular: normal rate, regular rhythm, no gallop/murmur, no JVD Respiratory/Chest: lungs clear, normal breath sounds, no respiratory distress, no accessory muscle use Abdomen: non tender, soft, no organomegaly, no mass Extremities: normal range of motion, non-tender, normal inspection Edema: no edema noted Arm (L), no edema noted Arm (R), no edema noted Leg (L), no edema noted Leg (R), no edema noted Pedal (L), no edema noted Pedal (R), no edema noted Generalized Neurologic: flying shear operator II-XII grossly normal Kiana Wood DO Dec 17, 2018 09:29
--- NOTE | 2018-12-17 09:38 | Nephrology Progress Note ---
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 - monitor phos and calcium - follow cx - Ok to DC frrom renal perspective today after HD Subjective Interval Events/Complaints K 5.7 today seen during HD today VSS breathing stable Objective Objective Last 24 Hour Vital Signs Date Time Temp Pulse Resp B/P (MAP) Pulse Ox O2 Delivery O2 Flow Rate FiO2 12/17/18 08:00 97.9 72 18 128/60 (82) 96 12/17/18 04:00 66 12/17/18 04:00 98.9 74 17 128/74 (92) 94 12/17/18 00:00 72 12/17/18 00:00 98.7 69 18 126/70 (88) 94 12/16/18 20:45 Room Air 12/16/18 20:00 99.0 76 17 122/71 (88) 95 12/16/18 20:00 75 12/16/18 17:37 Room Air 12/16/18 16:00 98.4 84 20 112/73 (86) 98 12/16/18 16:00 72 12/16/18 12:00 71 12/16/18 12:00 98.4 70 20 112/77 (89) 98 Intake and Output 12/16/18 12/17/18 19:00 07:00 Intake Total 600 ml 240 ml Output Total 250 ml Balance 350 ml 240 ml Intake Oral 600 ml 240 ml Output Urine Total 250 ml # Voids 1 # Bowel Movements 2 1 Laboratory Tests 12/17/18 05:05: White Blood Count 7.4, Red Blood Count 3.81L, Hemoglobin 10.6L, Hematocrit 34.0L , Mean Corpuscular Volume 89, Mean Corpuscular Hemoglobin 27.8, Mean Corpuscular Hemoglobin Concent 31.2L, Red Cell Distribution Width 14.6, Platelet Count 125L, Mean Platelet Volume 7.2, Neutrophils (%) (Auto) 46.9, Lymphocytes (%) (Auto) 31.4, Monocytes (%) (Auto) 9.6, Eosinophils (%) (Auto) 10.6H, Basophils (%) (Auto) 1.5, Sodium Level 136, Potassium Level 5.7H, Chloride Level 99, Carbon Dioxide Level 24, Anion Gap 13, Blood Urea Nitrogen 99H, Creatinine 10.5H, Estimat Glomerular Filtration Rate , Glucose Level 91, Calcium Level 9.9 Height (Feet): 6 Height (Inches): 1.00 Weight (Pounds): 180 Rosi Andres M.D. Dec 17, 2018 09:38
[2018-12-17 12:00] VITALS: BP 119/75
--- NOTE | 2018-12-17 12:45 | NUR ---
DISCHARGE PLANNED DISCHARGE TO [facility] 15B SKILLED T: [phone] FOR NURSE TO NURSE REPORT [facility] HAS BEEN ARRANGED FOR 1600 ENVIRONMENTAL ENGINEERING AIDE
--- NOTE | 2018-12-17 15:00 | NUR ---
NURSE NOTES: Patient's belonging list went over with patient. Discharge plan and medication list are explained to patient. He is unable to sign due to hand shakiness and arthritis. He acknowledged all the information is correct and agreed to let me sign the paper without his signature.
--- NOTE | 2018-12-17 15:43 | NUR ---
NURSE NOTES: Give nurse report about patient to receiving nurse at [facility] Dionicio Marquez RN. She confirmed that the patient is going there around 1700 and she will make sure that his dinner will be ready for him by the time he arrives.
--- NOTE | 2018-12-17 16:40 | NUR ---
NURSE NOTES: Contacted Dr. Wood to let her know the patient got dialysis and took out 1L, he has not void since d/c cloud yesterday. Nurse scan bladder and showed 400ml in the bladder. Dr. Wood ordered cloud catheter to put in and patient can be discharged with the cloud.
--- NOTE | 2018-12-17 17:15 | NUR ---
NURSE NOTES: [facility] and confirmed with receiving nurse Dionicio that there will be a cloud that patient will go to the [facility] with. TWIN Greenberg transferred the phone to Tonia, the SPENCER of [facility] and verify the order. Tonia confirmed and acknowledge that patient will go to them with a cloud catheter and she said: "we will train him with bladder control here."
--- NOTE | 2018-12-17 17:30 | NUR ---
NURSE NOTES: Acknowledge Dr. Wood's order to have cloud catheterization in for the patient to go to assisted with. Order's acknowledge and carried out. Patient had 600ml of urine output in the bag. No s/s of distress or SOB. patient denies pain after cloud placement. Emptied urine bag and patient is transported out by [facility] at 1745.
--- NOTE | 2018-12-17 17:45 | NUR ---
NURSE NOTES: Patient's transferred out by [facility] to [facility] at 1745. Patient's in stable condition, no s/s of distress or SOB. Patient is happy to go back to detention. secured entrance monitor, IV and ID band are removed. train control electronic technician and charged nurse are notified.
--- NOTE | 2018-12-17 20:45 | Cardiology Report ---
APPROVED REPORT EKG Measurement Heart [id number] MA [id number] Normal sinus rhythm Septal infarct, age undetermined Abnormal ECG
[2018-12-19] MEDS ORDERED: NS 275ml ONE (09:00)
== END 2018-12-17 17:57 | DRG 193 ==
LOC: EDBD 17:53 → EMR 19:33 → 2E 19:50 → EDBEDREQ 20:42
PROC: 5A1D70Z Performance of Urinary Filtration, Intermittent, Less than 6 Hours Per Day (ICD-10-PCS; principal; 2018-12-14)
DX: J18.9 Pneumonia, unspecified organism (principal); N18.6 End stage renal disease; I12.0 Hypertensive chronic kidney disease with stage 5 chronic kidney disease or end stage renal disease; Z99.2 Dependence on renal dialysis; E87.5 Hyperkalemia; B96.1 Klebsiella pneumoniae [K. pneumoniae] as the cause of diseases classified elsewhere; Z88.0 Allergy status to penicillin; Z86.718 Personal history of other venous thrombosis and embolism; F32.9 Major depressive disorder, single episode, unspecified; F41.9 Anxiety disorder, unspecified
CPT/HCPCS: 36415; 71045; 80048; 80053; 80076; 80202; 81003; 82550; 82553; 82803; 83605; 83735; 83880; 84100; 84484; 85025; 85610; 85730; 87040; 87081; 87086; 87181; 93005; 96365; 99285